=== PATIENT | female | born 1980 | race Two or more races ===

== ENCOUNTER 2018-12-24 09:30 | Day surgery (SDC) | payer OTHER ==
[2018-12-24] MEDS ORDERED: Tylenol #3 PO (14:17)
[2018-12-24] MEDS ORDERED: DOXYCYCLINE HY100 M2 PO (14:17)
== END 2018-12-24 17:50 | disposition home or self-care (01) ==
LOC: CIR.AMB 09:30
DX: N84.0 Polyp of corpus uteri (principal); D25.0 Submucous leiomyoma of uterus

== ENCOUNTER 2021-04-23 10:45 | Inpatient (IN) | payer OTHER ==
[~2021-04-23] VITALS: Ht 160 cm; Wt 62.6 kg
[~2021-04-23 10:45] MED LIST: DOXYCYCLINE HY100 M2 PO; Tylenol #3 PO
[2021-04-23] MEDS ORDERED: MESAL PO (14:17)
[2021-04-23] MEDS ORDERED: MESALAMINE (14:18)
[2021-04-26] MEDS ORDERED: MESALAMINE800 MG (11:35)
[2021-04-26] MEDS ORDERED: PREDNISONE20 M1 (11:35)
[2021-04-27] MEDS ORDERED: Tylenol #3 PO (09:03)
[2021-04-27] MEDS ORDERED: NAPR500T14 PO (09:03)
== END 2021-04-27 10:43 | disposition home or self-care (01) | DRG 743 ==
LOC: O/R 04-26 05:55 → SURH 04-26 10:45 → OB/GYN 04-26 14:58
PROVIDERS: ADMIT Obstetrics & Gynecology; ATTEND Obstetrics & Gynecology
PROC: 0UQF0ZZ Repair Cul-de-sac, Open Approach (ICD-10-PCS; 2021-04-26)
PROC: 0USG0ZZ Reposition Vagina, Open Approach (ICD-10-PCS; 2021-04-26)
PROC: 0TJB8ZZ Inspection of Bladder, Via Natural or Artificial Opening Endoscopic (ICD-10-PCS; 2021-04-26)
PROC: 0UT97ZZ Resection of Uterus, Via Natural or Artificial Opening (ICD-10-PCS; principal; 2021-04-26 12:15)
DX: N84.0 Polyp of corpus uteri (principal); N80.0 Endometriosis of uterus; N72 Inflammatory disease of cervix uteri; N92.0 Excessive and frequent menstruation with regular cycle; D25.0 Submucous leiomyoma of uterus; N81.11 Cystocele, midline